=== PATIENT | male | born 1995 | race Caucasian/White ===

== ENCOUNTER 2020-12-31 14:15 | Emergency (ER) | payer OTHER ==
[~2020-12-31] VITALS: Ht 182.9 cm; Wt 61.2 kg
[2020-12-31 14:56] LABS: ABSOLUTE NEUTROPHILS 2.5 thou/uL (1.4-8.2); BASOPHILS 0.4 % (0.0-2.0); EOSINOPHILS 2.5 % (0.0-3.0); HEMATOCRIT 40.2 % (42.0-52.0); HEMOGLOBIN 13.6 gm/dL (14.0-18.0); LYMPHOCYTES 34.1 % (24.0-44.0); MCH 32.2 pg (26.0-34.0); MCHC 33.8 g/dL (28.0-37.0); MCV 95.3 fL (80.0-100.0); PLATELET COUNT 213 thou/uL (150-400); RBC 4.22 mil/uL (4.50-6.00); RDW 13.2 % (10.5-14.5)
[2020-12-31 15:04] LABS: ANION GAP 6 mmol/L (7-16); BUN 13 mg/dL (7-18); CALCIUM 8.9 mg/dL (8.5-10.1); CHLORIDE 104 mmol/L (98-107); CO2 32 mmol/L (21-32); CREATININE 1.1 mg/dL (0.7-1.3); GLUCOSE 123 mg/dL (74-106); POTASSIUM 4.2 mmol/L (3.5-5.1); SODIUM 142 mmol/L (136-145)
[2020-12-31 15:09] LABS: LIPASE 43 U/L (73-393); SALICYLATE 2.9 mg/dL (2.8-20.0); SGOT 15 U/L (15-37); SGPT 36 U/L (16-63); TOTAL BILIRUBIN 0.5 mg/dL (0.2-1.0)
--- NOTE | 2020-12-31 15:59 | EKG ---
[address] [place] [place] [address] ELECTROCARDIOGRAM REPORT Name: MARCELLE PLATT Room #: REG FANI Ramirez#: [id number] Admission: 12/31/20 Attend Phys: Discharge: Date of : [birth year] Report #: [id number] [facility] ED Test Date: 2020-12-31 Test Time: 14:57:12 Pat Name: MARCELLE PLATT Department: Patient ID: [id number] Room: Gender: M [employer]: ALMAS : 1995 Requested By: Mejia Fleming Order Number: [id number] MD: Ross Henry Measurements Intervals [place] Rate: 49 P: 35 [place]: 155 QRS: 45 QRSD: 88 T: 26 QT: 487 QTc: 440 Interpretive Statements Sinus bradycardia Baseline wander in lead(s) V2,V6 No previous ECG available for comparison Electronically Signed On 12-31-2020 15:59:22 CDT by Ross Henry [email or web address] <ELECTRONICALLY SIGNED> By: Ross Henry MD, [facility] 12/31/20 1559 1457 1457 Ross Henry MD, FACC /EPI
[2020-12-31 16:14] LABS: AMP/METHAMP Negative (Negative); BARBITURATES Negative (Negative); BENZODIAZEPINES POSITIVE (Negative); COCAINE Negative (Negative); METHADONE Negative (Negative); OPIATES POSITIVE (Negative); PCP Negative (Negative)
[2020-12-31] MEDS ORDERED: CLONAZEPAM 1 MG1 M1 PO (17:59)
[2020-12-31] MEDS ORDERED: NEURONTIN 300M300 M2 PO (18:00)
[2020-12-31] MEDS ORDERED: QUETIAPINE FUMA50 MG PO (18:00)
[2020-12-31] MEDS ORDERED: SUBOXONE 8 MG-1 EAC3 SUBLING (18:01)
[2020-12-31 18:47] VITALS: BP 124/77
== END 2020-12-31 18:47 | disposition home or self-care (01) ==
LOC: ER 14:15
PROVIDERS: Emergency Medicine
DX: F13.10 Sedative, hypnotic or anxiolytic abuse, uncomplicated (principal); F10.920 Alcohol use, unspecified with intoxication, uncomplicated; R11.10 Vomiting, unspecified; Z79.899 Other long term (current) drug therapy